=== PATIENT | female | born 1955 | race Caucasian/White ===

== ENCOUNTER 2019-06-21 16:24 | Inpatient (IN) | payer OTHER ==
[~2019-06-21] VITALS: Ht 162.6 cm; Wt 67.8 kg
[~2019-06-21 16:24] MED LIST: GABA300C10 PO; IBUP-1310 PO; LEVO75TA6 PO; TRAZ150T79 PO
[2019-06-21] MEDS ORDERED: ceFAZolin 1GM/50ML 100 ML IV ONE (17:38)
[2019-06-21] MEDS: SODIUM CHLORIDE 0.9% 1,000 ML IV SCH (20:10)
[2019-06-21] MEDS ORDERED: METHYLENE BLUE 0.5% 5MG/ML 10ml AMP IV ONE (20:10)
[2019-06-21] MEDS ORDERED: BUPIVACAINE 0.25% INJ 50ML VIAL ONE (20:11)
[2019-06-21] MEDS ORDERED: LIDOCAINE W/ EPINEPHRINE 1 % INJ 30ML ONE (20:11)
[2019-06-21] MEDS ORDERED: LIDOCAINE HCL (LOCAL ANESTH.) 0.5 % 50ML MDV IJ ONE (20:11)
[2019-06-21] MEDS ORDERED: ACETAMINOPHEN 500 MG TAB PO PRN (20:15)
[2019-06-21] MEDS ORDERED: NITROGLYCERIN 0.4 MG SL TAB SL PRN (20:15)
[2019-06-21] MEDS ORDERED: ceFAZolin 1GM/50ML 50 ML IV ONE (20:15)
[2019-06-21] MEDS ORDERED: MORPHINE SULF INJ 2 MG/ML SYRINGE 1ML IV PRN (20:15)
[2019-06-21] MEDS ORDERED: LEVOTHYROXINE SODIUM 25 MCG TAB PO ONE (20:15)
[2019-06-21] MEDS ORDERED: NEOSTIGMINE 1 MG/ML INJ (10mg/10ML VIAL) IV ONE (21:04)
[2019-06-21] MEDS ORDERED: fentaNYL CITRATE 5 ML ONE (21:13)
[2019-06-21] MEDS ORDERED: PROPOFOL 10 MG/ML 20 ML IV ONE (21:13)
[2019-06-21] MEDS ORDERED: ROCURONIUM 10MG/ML 10ML VIAL IV ONE (21:13)
[2019-06-21] MEDS ORDERED: MIDAZOLAM HCL 1MG/1ML-2 ML VIAL ONE (21:13)
[2019-06-21] MEDS ORDERED: traZODone HCL 50 MG TAB PO SCH (22:00)
[2019-06-21] MEDS: GABAPENTIN 300 MG CAP PO SCH (22:00)
[2019-06-21] MEDS ORDERED: HYDROmorphone HCL 2 MG/ML VL ONE (22:26)
[2019-06-21] MEDS ORDERED: HYDROmorphone HCL 2 MG/ML VL IV PRN ×2 (23:00)
[2019-06-21] MEDS ORDERED: ePHEDrine SULFATE 50 MG/ML AMP IV PRN (23:00)
[2019-06-21] MEDS ORDERED: hydrALAZINE HCL 20 MG/ML VL IV PRN (23:00)
[2019-06-21] MEDS ORDERED: ONDANSETRON HCL 4 MG/2 ML VIAL IV ONE (23:00)
[2019-06-21] MEDS ORDERED: GLYCOPYRROLATE 0.2 MG/ML 1ML VIAL ONE (23:11)
[2019-06-22] VITALS (13 sets, daily range): BP systolic 113–140; BP diastolic 63–79
--- NOTE | 2019-06-22 00:44 | NUR ---
RECEIVED REPORT FROM NURSE ARMSTRONG REGARDING NEW ADMIT FROM OR FOR PELVIC PAIN AND PROLAPSE VAGINAL WALL. PATIENT IS STABLE. AWAITING PATIENT ARRIVAL TO [facility].
--- NOTE | 2019-06-22 00:53 | NUR ---
MS admit from ER SHERRON ALVARADO admitted to tele/MS after SBAR received. Patient oriented to BERNARD CARMEN RN primary RN, unit, room, bed, and unit policies regarding patient care and visiting hours. Patient weighed by bedscale and encouraged to call if they need something. All questions and concerns addressed, patient verbalized understanding. Note:
--- NOTE | 2019-06-22 01:30 | NUR ---
PATIENT RESTING IN BED COMFORTABLY WITH HOB ABOVE 30 DEGREES. PATIENT HAS NO COMPLAINTS OF PAIN OR ANY DISCOMFORTS. INFORMED SPOUSE DANY PLAN OF CARE AND STATES HE WILL RETURN AT 0800 06/22. PATIENT CALL LIGHT WITHIN REACH. WILL CONTINUE TO MONITOR PATIENT.
[2019-06-22] MEDS: SODIUM CHLORIDE 0.9% 1,000 ML IV SCH ×2 (04:10→12:10)
--- NOTE | 2019-06-22 04:30 | NUR ---
PATIENT C/O PAIN AND NAUSEA 7/10 TO LOWER ABDOMINAL PAIN 7/10 AND NAUSEA. ADMINISTERED ZOFRAN 4GMIV, DILAUDID 0.5MG IV, TORADOL 30MG IV. PATIENT TOLERATED WELL. WILL CONTINUE TO MONITOR PATIENT. Addendum: 06/22/19 at 0622 by BERNARD CARMEN RN RN OFFERED PATIENT ICE WATER AND JELLO, PATIENT TOLERATED ICE AND WATER WITHOUT ANY NAUSEA. PATIENT HAS 0/10 LOWER ABODMIN. WILL CONTINUE TO MONITOR PATIENT.
[2019-06-22] MEDS: ONDANSETRON HCL 4 MG/2 ML VIAL IV PRN ×3 (04:45→13:30)
[2019-06-22] MEDS: KETOROLAC TROMETH 15 mg/ml 1ML VL IV PRN ×2 (04:45→13:29)
[2019-06-22] MEDS: MORPHINE SULFATE 4 MG/ML SYR/VIAL IV PRN ×2 (05:00→09:22)
[2019-06-22] MEDS: GABAPENTIN 300 MG CAP PO SCH ×2 (06:00→13:30)
[2019-06-22 06:35] LABS: Basophils # (auto) 0 uL; Basophils % (auto) 0.1 % (0.0-2.0); Eosinophils # (auto) 0 uL; Hematocrit 43.6 % (36.0-46.0); Hemoglobin 14.8 g/dL (12.2-16.2); Lymphocytes # (auto) 0.6 uL; Lymphocytes % (auto) 4.1 % (10.0-50.0); Mean Corpuscular Hemoglobin 30.7 pg (28.0-32.0); Mean Corpuscular Volume 90.3 fL (80.0-100.0); Monocytes # (auto) 0.5 uL; Monocytes % (auto) 3.9 % (0.0-12.0); Neutrophils % (auto) 91.9 % (37.0-80.0); Platelet Count (auto) 216 10^3/uL (140-450); Red Blood Cells 4.83 10^6/uL (4.0-5.20); Red Cell Distribution Width 12.9 % (11.8-14.3); White Blood Cell 14.2 10^3/uL (4.4-10.8)
--- NOTE | 2019-06-22 07:25 | NUR ---
Opening Shift Note Assumed care of patient, awake and alert. No S/S of distress/SOB, however patient complained of pain with movement. Pain medication not yet due, but instructions on pain management provided. Instructed on POC and to call for assist PRN, will continue to monitor for changes Q1hr and PRN.
--- NOTE | 2019-06-22 08:10 | NUR ---
Huang Catheter Patient wants to wait until after pain medication to remove Huang catheter.
--- NOTE | 2019-06-22 10:45 | NUR ---
Timmons catheter dc'd Order to discontinue timmons catheter. Timmons dc'd with clean technique following deflation of balloon. Patient tolerated well with no complaints of pain. Continue care.
--- NOTE | 2019-06-22 11:00 | NUR ---
Dressing change Dressing to op-site changed and patient tolerated procedure well. Patient was instructed on incisional care by VIOLA Kapoor. Patient verbalized understanding.
--- NOTE | 2019-06-22 13:50 | NUR ---
Post Huang Void Patient ambulated to bathroom and passed urine.
--- NOTE | 2019-06-22 17:15 | NUR ---
Discharge instructions given as ordered. Encourage to follow up with PMD as instructed. All questions and concerns addressed. Patient verbalized understanding. Medication reconciliation form completed and copy given to patient. IV's removed with catheter intact and pressure dressing applied. Patient taken to vehicle via wheelchair with all personal belongings, accompanied by staff and family member. No distress noted at time of departure.
== END 2019-06-22 17:15 | disposition home or self-care (01) | DRG 746 ==
LOC: SUR 16:24 → WEST WING 06-22 00:58
PROVIDERS: ADMIT Obstetrics & Gynecology; ATTEND Obstetrics & Gynecology
PROC: 0UUF4JZ Supplement Cul-de-sac with Synthetic Substitute, Percutaneous Endoscopic Approach (ICD-10-PCS; 2019-06-21)
PROC: 8E0W4CZ Robotic Assisted Procedure of Trunk Region, Percutaneous Endoscopic Approach (ICD-10-PCS; 2019-06-21)
PROC: 0USG4ZZ Reposition Vagina, Percutaneous Endoscopic Approach (ICD-10-PCS; principal; 2019-06-21 21:04)
DX: N81.10 Cystocele, unspecified (principal); F32.3 Major depressive disorder, single episode, severe with psychotic features; K46.9 Unspecified abdominal hernia without obstruction or gangrene; N81.89 Other female genital prolapse; Z80.3 Family history of malignant neoplasm of breast; Z80.8 Family history of malignant neoplasm of other organs or systems
CPT/HCPCS: 36415; 71046; 85025; 86850; 86900; 86901; G0378; J0690; J2250; J2405; J2704; J3490